=== PATIENT | female | born 1965 | race Caucasian/White ===

== ENCOUNTER 2018-06-11 13:57 | Emergency (ER) | payer OTHER ==
[~2018-06-11] VITALS: Ht 149.9 cm; Wt 35.0 kg
[2018-06-11] MEDS ORDERED: SUPRAX400 M1 PO (16:46)
[2018-06-11 17:48] VITALS: BP 126/68
== END 2018-06-11 18:05 | disposition home or self-care (01) ==
LOC: ED 13:57
DX: T74.21XA Adult sexual abuse, confirmed, initial encounter (principal); S70.11XA Contusion of right thigh, initial encounter; S40.921A Unspecified superficial injury of right upper arm, initial encounter; Y92.89 Other specified places as the place of occurrence of the external cause; Z59.0 Homelessness